=== PATIENT | female | born 1950 | race Caucasian/White ===

== ENCOUNTER 2023-04-11 21:08 | Inpatient (IN) | payer MEDICARE ==
[2023-04-11] MEDS ORDERED: SODIUM CHLORIDE 0.9% 1,000 ML IV STA (21:19)
--- NOTE | 2023-04-11 21:25 | ED ---
Chest Pain HPI - General Chief Complaint: Chest Pain Stated Complaint: STEMI Time Seen by Provider: 04/11/23 21:19 Source: patient, EMS, RN notes reviewed, old records reviewed Mode of arrival: EMS Limitations: no limitations - History of Present Illness Initial Comments: This is a 73-year-old female to the ER for evaluation of chest pain. Patient is excepted in transfer from outside hospital for elevated troponin and chest pain MD Complaint: chest pain -: hour(s) (12) Onset: during rest Pain Location: substernal, left chest Pain Radiation: LUE Severity: moderate Quality: tightness, heaviness Consistency: constant Improves With: nothing Worsens With: nothing Treatments Prior to Arrival: none, aspirin - Related Data Allergies Allergy/AdvReac Type Severity Reaction Status Date / Time morphine AdvReac Rash/Hives Verified 04/11/23 21:24 rifaximin [From Xifaxan] AdvReac Rash/Hives Verified 04/11/23 21:24 Sulfa (Sulfonamide AdvReac Rash/Hives Verified 04/11/23 21:24 Antibiotics) tetracycline AdvReac Rash/Hives Verified 04/11/23 21:24 Review of Systems ROS Statement: Those systems with pertinent positive or pertinent negative responses have been documented in the HPI. ROS Other: All systems not noted in ROS Statement are negative. EKG Findings - EKG Comments: EKG Findings:: EKG is sinus 72 CA 180 QRS 91 QTc 464 - EKG Results: EKG: interpreted by JENNIFER Past Medical History Past Medical History: Cancer, Diabetes Mellitus Additional Past Medical History / Comment(s): Lung CA, Skin CA History of Any Multi-Drug Resistant Organisms: None Reported Past Surgical History: Heart Catheterization With Stent Additional Past Surgical History / Comment(s): Lung CA removal Past Psychological History: No Psychological Hx Reported Smoking Status: Vaper Past Alcohol Use History: None Reported Past Drug Use History: None Reported General Exam Limitations: no limitations General appearance: alert, in no apparent distress Head exam: Present: atraumatic, normocephalic, normal inspection Eye exam: Present: normal appearance, PERRL, EOMI. Absent: scleral icterus, conjunctival injection, periorbital swelling ENT exam: Present: normal exam, mucous membranes moist Neck exam: Present: normal inspection. Absent: tenderness, meningismus, lymphadenopathy Respiratory exam: Present: normal lung sounds bilaterally. Absent: respiratory distress, wheezes, rales, rhonchi, stridor Cardiovascular Exam: Present: regular rate, normal rhythm, normal heart sounds. Absent: systolic murmur, diastolic murmur, rubs, gallop, clicks GI/Abdominal exam: Present: soft, normal bowel sounds. Absent: distended, tenderness, guarding, rebound, rigid Extremities exam: Present: normal inspection, full ROM, normal capillary refill. Absent: tenderness, pedal edema, joint swelling, calf tenderness Back exam: Present: normal inspection Neurological exam: Present: alert, oriented X3, CN II-XII intact Psychiatric exam: Present: normal affect, normal mood Skin exam: Present: warm, dry, intact, normal color. 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 sent in by a medical professional or institution (, PA, PARALEGAL ASSISTANT, urgent care, hospital, or [facility]...) When possible be specific @ -no Did you speak to anyone other than the patient for history (EMS, parent, family, police, friend...)? What history was obtained from this source @ -no Did you review nursing and triage notes (agree or disagree)? Why? @ -agree Are old charts reviewed (outside hosp., previous admission, EMS record, old EKG, old radiological studies, urgent care reports/EKG's, [facility] records)? Rep ort findings @ -yes Differential Diagnosis (chest pain, altered mental status, abdominal pain women, abdominal pain men, vaginal bleeding, weakness, fever, dyspnea, syncope, headache, dizziness, GI bleed, back pain, seizure, CVA, palpatations, mental health, musculoskeletal)? @ -prior EKG interpreted by me (3pts min.). @ -yes X-rays interpreted by me (1pt min.). @ -yes negative for acute disease CT interpreted by me (1pt min.). @ -no U/S interpreted by me (1pt. min.). @ -no What testing was considered but not performed or refused? (CT, X-rays, U/S, labs)? Why? @ -none What meds were considered but not given or refused? Why? @ -none Did you discuss the management of the patient with other professionals (professionals i.e. , PA, PARALEGAL ASSISTANT, lab, RT, psych nurse, social worker assistant, car examiner, t eacher, assurance officer, showcase maker)? Give summary @ -no Was smoking cessation discussed for >3mins.? @ -no Was critical care preformed (if so, how long)? @ -no Were there social determinants of health that impacted care today? How? (Homelessness, low income, unemployed, alcoholism, drug addiction, transportation, low edu. Level, literacy, decrease access to med. care, nursing home, rehab)? @ -none Was there de-escalation of care discussed even if they declined (Discuss DNR or withdrawal of care, Hospice)? DNR status @ -no What co-morbidities impacted this encounter? (DM, HTN, Smoking, COPD, CAD, Cancer, CVA, ARF, Chemo, Hep., AIDS, mental health diagnosis, sleep apnea, morbid obesity)? @ -none Was patient admitted / discharged? Hospital course, mention meds given and route, prescriptions, significant lab abnormalities, going to OR and other pertinent info. @ - Undiagnosed new problem with uncertain prognosis? @ -no Drug Therapy requiring intensive monitoring for toxicity (Heparin, Nitro, Insulin, Cardizem)? @ -no Were any procedures done? @ -no Diagnosis/symptom? @ - Acute, or Chronic, or Acute on Chronic? @ -Acute Uncomplicated (without systemic symptoms) or Complicated (systemic symptoms)? @ -Complicated Side effects of treatment? @ -no Exacerbation, Progression, or Severe Exacerbation? @ -exacerbation Poses a threat to life or bodily function? How? (Chest pain, [place], [place], pneumonia, PE, COPD, DKA, ARF, appy, cholecystitis, CVA, Diverticulitis, Homicidal, Suicidal, threat to staff... and all critical care pts) @ -yes Reevaluation #5: 04/11/23 22:04 Differential Chest Pain: Stable Angina, Unstable Angina, STEMI, NSTEMI Aortic Dissection, Pneumothorax, Musculoskeletal, Esophageal Spasm GERD, Cholecystitis, Pancreatitis, Zoster, this is not meant to be an all-inclusive list. - Consultations Consultation #1: Spoke with Dr. Pedersen will see the patient in the morning Consultation #2: Poke with [facility] physicians who agreed to admit this patient Chest Pain MDM - MDM 73 female will be admitted for non-ST elevated [place], elevated troponin with the setting of chest pain Critical Care Time Critical Care Time: Yes Total Critical Care Time: 31 Disposition Clinical Impression: Chest pain, Acute non-ST elevation myocardial infarction (NSTEMI) Disposition: ADMITTED IP TO THIS HOSP Condition: Serious Is patient prescribed a controlled substance at d/c from ED?: No Time of Disposition: 21:50
[2023-04-11] MEDS ORDERED: ASPIRIN 81 MG PO STA (21:35)
[2023-04-11] MEDS ORDERED: NITROGLYCERIN SL TABS 0.4 MG TAB SUBLINGUAL PRN (21:35)
[2023-04-11 21:57] LABS: Basophils % (A) 0 %; Eosinophils # (A) 0.1 k/uL (0-0.7); Eosinophils % (A) 1 %; HCT 43.5 % (34.0-46.0); HGB 14.9 gm/dL (11.4-16.0); Lymphocytes # (A) 3.1 k/uL (1.0-4.8); Lymphocytes % (A) 29 %; MCH 30.4 pg (25.0-35.0); MCHC 34.2 g/dL (31.0-37.0); MCV 88.9 fL (80.0-100.0); Mean Platelet Volume 8.4; Monocytes # (A) 0.5 k/uL (0-1.0); Monocytes % (A) 5 %; Neutrophils # (A) 6.8 k/uL (1.3-7.7); Neutrophils % (A) 63 %; Platelet Count 211 k/uL (150-450); RDW 13.2 % (11.5-15.5); WBC 10.9 k/uL (3.8-10.6)
[2023-04-11] MEDS ORDERED: HEPARIN SODIUM 1,000 UN/ML (10ML VL) IV PRN (22:03)
[2023-04-11] MEDS ORDERED: NITROGLYCERIN OINT 1 INCH/GM PACKET TOPICAL STA (22:03)
[2023-04-11 22:06] LABS: Partial Thromboplastin Time 62.7 sec (22.0-30.0); Prothrombin Time 10.8 sec (10.0-12.5)
[2023-04-11] MEDS ORDERED: HYDROmorphone 0.5 MG/0.5 ML SYRINGE IVP STA (22:20)
[2023-04-11] MEDS: HEPARIN SOD,PORK IN 0.45% NACL 25,000 UNIT in 0.45% NACL 1 250ML.BAG IV SCH (22:31)
[2023-04-11] MEDS ORDERED: ALBUTEROL NEBULIZED 2.5 MG/3 ML INHALATION PRN (22:46)
[2023-04-11 22:51] LABS: ALT 23 U/L (4-34); AST 61 U/L (14-36); African American GFR (CKD) 67 (>60 ml/min/1.73 sqM); Albumin 4.3 g/dL (3.5-5.0); Alkaline Phosphatase 99 U/L (38-126); Anion Gap 7 mmol/L; Blood Urea Nitrogen 22 mg/dL (7-17); Calcium 8.8 mg/dL (8.4-10.2); Carbon Dioxide 27 mmol/L (22-30); Chloride 103 mmol/L (98-107); Glucose 270 mg/dL (74-99); Magnesium 2.2 mg/dL (1.6-2.3); Non-African American GFR(CKD) 58 (>60 ml/min/1.73 sqM); Phosphorus 4.1 mg/dL (2.5-4.5); Sodium 137 mmol/L (137-145); Total Protein 6.9 g/dL (6.3-8.2)
[2023-04-11 22:56] LABS: Potassium 5.1 mmol/L (3.5-5.1)
[2023-04-11 22:59] LABS: NT-Pro-B-Type Natriuretic Pept 6630 pg/mL
[2023-04-11 23:24] LABS: Basophils % (A) 1 %; Eosinophils # (A) 0.1 k/uL (0-0.7); Eosinophils % (A) 1 %; HCT 42.4 % (34.0-46.0); HGB 14.1 gm/dL (11.4-16.0); Lymphocytes # (A) 2.1 k/uL (1.0-4.8); Lymphocytes % (A) 25 %; MCH 29.9 pg (25.0-35.0); MCHC 33.3 g/dL (31.0-37.0); MCV 89.9 fL (80.0-100.0); Mean Platelet Volume 7.6; Monocytes # (A) 0.5 k/uL (0-1.0); Monocytes % (A) 6 %; Neutrophils # (A) 5.4 k/uL (1.3-7.7); Neutrophils % (A) 65 %; Platelet Count 195 k/uL (150-450); RBC 4.72 m/uL (3.80-5.40); RDW 13.1 % (11.5-15.5); WBC 8.3 k/uL (3.8-10.6)
[2023-04-11] MEDS: allopurinoL 100 MG TAB PO SCH (23:56)
[2023-04-11] MEDS: tiZANidine 4 MG TAB PO SCH (23:56)
[2023-04-11] MEDS: MAGNESIUM OXIDE 400 MG TAB PO SCH (23:56)
[2023-04-11] MEDS: ATORVASTATIN 20 MG TAB PO SCH (23:56)
[2023-04-11] MEDS: GABAPENTIN 300 MG CAP PO SCH (23:56)
[2023-04-11] MEDS: GLIMEPIRIDE 1 MG TAB PO SCH (23:56)
[2023-04-12 00:02] LABS: Prothrombin Time 10.7 sec (10.0-12.5)
[2023-04-12] MEDS: HYDROmorphone 0.5 MG/0.5 ML SYRINGE IVP PRN ×2 (02:13→08:21)
[2023-04-12] MEDS: NITROGLYCERIN OINT 1 INCH/GM PACKET TOPICAL SCH ×5 (06:16→23:22)
[2023-04-12 06:49] LABS: Basophils % (A) 1 %; Eosinophils # (A) 0.1 k/uL (0-0.7); Eosinophils % (A) 1 %; HGB 13.5 gm/dL (11.4-16.0); Lymphocytes # (A) 2.4 k/uL (1.0-4.8); Lymphocytes % (A) 31 %; MCH 30.5 pg (25.0-35.0); MCHC 33.7 g/dL (31.0-37.0); MCV 90.5 fL (80.0-100.0); Mean Platelet Volume 7.7; Monocytes # (A) 0.5 k/uL (0-1.0); Monocytes % (A) 7 %; Neutrophils # (A) 4.5 k/uL (1.3-7.7); Neutrophils % (A) 58 %; Platelet Count 203 k/uL (150-450); RBC 4.41 m/uL (3.80-5.40); RDW 13.2 % (11.5-15.5); WBC 7.7 k/uL (3.8-10.6)
[2023-04-12 07:12] LABS: Prothrombin Time 10.9 sec (10.0-12.5)
[2023-04-12] MEDS: BUDESONIDE 0.5 MG/2 ML NEBU INHALATION SCH ×2 (08:20→20:42)
[2023-04-12] MEDS: GABAPENTIN 300 MG CAP PO SCH ×2 (08:24→21:00)
[2023-04-12] MEDS: METOPROLOL SUCCINATE (ER) 100 MG TAB.ER.24H PO SCH ×2 (08:24→08:25)
[2023-04-12] MEDS: MAGNESIUM OXIDE 400 MG TAB PO SCH (08:24)
[2023-04-12] MEDS: tiZANidine 4 MG TAB PO SCH ×3 (08:25→21:00)
[2023-04-12] MEDS: GLIMEPIRIDE 1 MG TAB PO SCH ×2 (08:30→23:22)
[2023-04-12] MEDS ORDERED: ASPIRIN 325 MG TAB PO SCH (09:00)
[2023-04-12] MEDS ORDERED: METOPROLOL TARTRATE 25 MG TAB PO SCH (09:00)
[2023-04-12 09:19] LABS: Chol/HDL Ratio 3.98 Ratio; LDL Cholesterol,Calculated 49.7 mg/dL (0.0-131.0)
[2023-04-12] MEDS ORDERED: ATORVASTATIN 80 MG TAB PO STA (09:44)
[2023-04-12] MEDS ORDERED: ALPRAZolam 0.25 MG TAB PO PRN (09:44)
[2023-04-12] MEDS ORDERED: NITROGLYCERIN SL TABS 0.4 MG TAB SUBLINGUAL PRN (09:44)
[2023-04-12] MEDS ORDERED: ASPIRIN 325 MG TAB PO STA (09:44)
[2023-04-12] MEDS: SODIUM CHLORIDE 0.9% 1,000 ML IV SCH ×2 (10:09→23:22)
[2023-04-12] MEDS ORDERED: CLOPIDOGREL 75 MG TAB PO SCH (11:45)
--- NOTE | 2023-04-12 13:38 | P.CRDCN ---
History of Present Illness Consult date: 04/12/23 Reason for Consult (text): NSTEMI History of present illness: History of present illness: This is a 73-year-old female patient with past medical history of diabetes mellitus type 2, hypertension, hyperlipidemia, lung cancer, vaping. We have been asked to evaluate the patient for non-ST elevated myocardial infarction. 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 She presented to the emergency center due to chest pain has been going on for couple weeks and including under the armpit area. Patient states the pain was getting worse, on and off over this time. Patient has been started on a heparin drip and is seen today in the emergency center waiting for bed on the cardiac stepdown unit. Patient denies having any history of smoking, no alcohol use. No family history of coronary artery disease. EKG sinus rhythm CBC is unremarkable. INR 1. Electrolytes normal. BUN 22 creatinine 0.96. Blood sugar 270. AST 61 otherwise liver function test are normal. Magnesium 2.2, phosphorus 4.1. Troponins 1.88, 2.05, 2.75. Triglycerides 298, cholesterol 146, LDL 49, HDL 36. Home cardiac medications: Atorvastatin 20 mg at bedtime, Plavix 75 mg Saturday, Lasix 40 mg twice daily, magnesium oxide 500 mg daily, Toprol- XL 100 mg daily. Review Of Systems: At the time of my exam: CONSTITUTIONAL: Denies fever or chills. HEENT: Denies blurred vision, vision changes, or eye pain. Denies hemoptysis CARDIOVASCULAR: Denies chest pain. Denies orthopnea. Denies PND. Denies palpitations RESPIRATORY: Denies shortness of breath. GASTROINTESTINAL: Denies abdominal pain. Denies nausea or vomiting. HEMATOLOGIC: Denies bleeding disorders. GENITOURINARY: Denies any blood in urine. SKIN: Denies pruitis. Denies rash. Physical examination: Gen: This is a 73-year-old female appears to be in no acute distress VS: reviewed HEENT: Head is atraumatic, normocephalic. Pupils equal, round. Sclerae is anicteric. NECK: Supple. No JVD. LUNGS: Clear to auscultation. No wheezes or rhonchi. No intercostal retractions. HEART: Regular rate and rhythm. No murmur. ABDOMEN: Soft No tenderness. EXTREMITIES: No pedal edema. No calf tenderness. NEUROLOGICAL: Patient is awake, alert and oriented x3. Assessment: Non-ST elevated myocardial infarction Diabetes mellitus type 2 Hypertension Hyperlipidemia History of lung cancer History of vaping Plan: Continue patient on home cardiac medications except for Plavix Continue heparin drip Schedule patient for cardiac catheterization today with Dr. Murrieta. Obtain 2-D echocardiogram and Doppler study to assess cardiac structure and function Further recommendations to follow based upon clinical course Thank you kindly for this consultation. Nurse practitioner note has been reviewed, I agree with documented findings and plan of care. Patient was seen and examined. Past Medical History Past Medical History: Cancer, Diabetes Mellitus Additional Past Medical History / Comment(s): Lung CA, Skin CA History of Any Multi-Drug Resistant Organisms: None Reported Past Surgical History: Heart Catheterization With Stent Additional Past Surgical History / Comment(s): Lung CA removal Past Psychological History: No Psychological Hx Reported Smoking Status: Vaper Past Alcohol Use History: None Reported Past Drug Use History: None Reported Medications and Allergies Home Medications Medication Instructions Recorded Confirmed Type ALPRAZolam [Xanax] 1 mg PO BID 04/11/23 04/11/23 History Albuterol Inhaler [Ventolin Hfa 2 puff INHALATION RT-Q4H PRN 04/11/23 04/11/23 History Inhaler] Atorvastatin [Lipitor] 20 mg PO HS 04/11/23 04/11/23 History Budesonide 0.5 mg INHALATION RT-BID 04/11/23 04/11/23 History Cholecalciferol (Vitamin D3) 50 mcg PO DAILY 04/11/23 04/11/23 History [Vitamin D3 (50 Mcg = 2000 Iu)] Clopidogrel [Plavix] 75 mg PO MOWEFR 04/11/23 04/11/23 History Cyanocobalamin [Vitamin B-12] 500 mcg PO DAILY 04/11/23 04/11/23 History Furosemide [Lasix] 40 mg PO BID 04/11/23 04/11/23 History Gabapentin 600 mg PO BID 04/11/23 04/11/23 History Glimepiride [Amaryl] 2 mg PO BID 04/11/23 04/11/23 History HYDROcodone/APAP 7.5-325MG [[place] 1 tab PO TID PRN 04/11/23 04/11/23 History 7.5-325] Ipratropium-Albuterol Nebulize 3 ml INHALATION RT-QID PRN 04/11/23 04/11/23 History [Duoneb 0.5 mg-3 mg/3 ml Soln] Magnesium Oxide [Magnesium] 500 mg PO DAILY 04/11/23 04/11/23 History Metoprolol Succinate (ER) [Toprol 100 mg PO DAILY 04/11/23 04/11/23 History Xl] allopurinoL [Zyloprim] 100 mg PO HS 04/11/23 04/11/23 History calcitrioL [Rocaltrol] 0.25 mcg PO TUTH 04/11/23 04/11/23 History tiZANidine [Zanaflex] 4 mg PO TID 04/11/23 04/11/23 History Allergies Allergy/AdvReac Type Severity Reaction Status Date / Time morphine AdvReac Rash/Hives Verified 04/11/23 22:20 rifaximin [From Xifaxan] AdvReac Rash/Hives Verified 04/11/23 22:20 Sulfa (Sulfonamide AdvReac Rash/Hives Verified 04/11/23 22:20 Antibiotics) tetracycline AdvReac Rash/Hives Verified 04/11/23 22:20 Physical Exam Vitals: Vital Signs Temp Pulse Pulse Resp BP Pulse Ox 04/12/23 08:20 65 16 95 04/12/23 08:00 55 L 18 103/63 96 04/12/23 06:00 61 16 100/58 98 04/12/23 04:00 58 L 16 80/59 97 04/12/23 02:00 65 18 103/68 95 04/11/23 23:54 64 18 118/67 93 L 04/11/23 22:30 63 18 127/69 96 04/11/23 21:30 67 18 136/78 93 L 04/11/23 21:26 69 04/11/23 21:15 97.1 F L 78 18 156/86 92 L Intake and Output 04/11/23 04/12/23 04/12/23 22:59 06:59 14:59 Other: Weight 75.75 kg Results 04/12/23 05:28 04/11/23 21:24 Cardiac Enzymes 04/11/23 04/11/23 04/11/23 Range/Units 21:24 21:24 22:46 AST 61 H (14-36) U/L Troponin I 1.880 H* 2.050 H* (0.000-0.034) ng/mL 04/12/23 Range/Units 01:07 AST (14-36) U/L Troponin I 2.750 H* (0.000-0.034) ng/mL Coagulation 04/11/23 04/11/23 04/12/23 Range/Units 21:24 22:46 05:28 PT 10.8 10.7 10.9 (10.0-12.5) sec APTT 62.7 H 35.0 H (22.0-30.0) sec 04/12/23 Range/Units 05:28 PT (10.0-12.5) sec APTT 54.9 H (22.0-30.0) sec Lipids 04/12/23 Range/Units 01:07 Triglycerides 298.00 H (0.00-149.00) mg/dL Cholesterol 146.00 (0.00-200.00) mg/dL HDL Cholesterol 36.70 L (40.00-60.00) mg/dL Cholesterol/HDL Ratio 3.98 Ratio CBC 04/11/23 04/11/23 04/12/23 Range/Units 21:22 22:46 05:28 WBC 10.9 H 8.3 7.7 (3.8-10.6) k/uL RBC 4.90 4.72 4.41 (3.80-5.40) m/uL Hgb 14.9 14.1 13.5 (11.4-16.0) gm/dL Hct 43.5 42.4 40.0 (34.0-46.0) % Plt Count 211 195 203 (150-450) k/uL Comprehensive Metabolic Panel 04/11/23 Range/Units 21:24 Sodium 137 (137-145) mmol/L Potassium 5.1 (3.5-5.1) mmol/L Chloride 103 (98-107) mmol/L Carbon Dioxide 27 (22-30) mmol/L BUN 22 H (7-17) mg/dL Creatinine 0.96 (0.52-1.04) mg/dL Glucose 270 H (74-99) mg/dL Calcium 8.8 (8.4-10.2) mg/dL AST 61 H (14-36) U/L ALT 23 (4-34) U/L Alkaline Phosphatase 99 (38-126) U/L Total Protein 6.9 (6.3-8.2) g/dL Albumin 4.3 (3.5-5.0) g/dL Current Medications Generic Name Dose Route Start Last Admin Trade Name Freq PRN Reason Stop Dose Admin Albuterol Sulfate 2.5 mg 04/11/23 22:46 Albuterol Nebulized 2.5 Mg/3 Ml INHALATION RT-Q4H PRN Shortness Of Breath Albuterol/Ipratropium 3 ml 04/11/23 22:46 Ipratropium-Albuterol 3 Ml Neb INHALATION RT-QID PRN Shortness Of Breath Allopurinol 100 mg 04/11/23 23:00 04/11/23 23:56 Allopurinol 100 Mg Tab PO 100 mg HS NORMA Administration Aspirin 325 mg 04/12/23 09:00 04/12/23 08:24 Aspirin 325 Mg Tab PO 325 mg DAILY NORMA Administration Atorvastatin Calcium 20 mg 04/11/23 23:00 04/11/23 23:56 Atorvastatin 20 Mg Tab PO 20 mg HS NORMA Administration Budesonide 0.5 mg 04/12/23 08:00 04/12/23 08:20 Budesonide 0.5 Mg/2 Ml Nebu INHALATION 0.5 mg RT-BID NORMA Administration Calcitriol 0.25 mcg 04/11/23 23:00 04/11/23 23:10 Calcitriol 0.25 Mcg Cap PO Not Given TuTh@0900 NORMA Gabapentin 600 mg 04/11/23 23:00 04/12/23 08:24 Gabapentin 300 Mg Cap PO 600 mg BID NORMA Administration Glimepiride 2 mg 04/11/23 23:00 04/12/23 08:30 Glimepiride 1 Mg Tab PO 2 mg BID NORMA Administration Heparin Sodium (Porcine) 0 unit 04/11/23 22:03 Heparin Sodium 1,000 Un/Ml (10ml Vl) IV PER PROTOCOL PRN Low PTT Protocol Hydromorphone HCl 0.5 mg 04/11/23 22:20 04/12/23 08:21 Hydromorphone 0.5 Mg/0.5 Ml Syringe IVP 0.5 mg Q4HR PRN Administration Pain Heparin Sodium/Sodium Chloride 250 mls @ 9.09 mls/hr 04/11/23 22:15 04/11/23 22:31 25,000 unit/ Sodium Chloride IV 12 units/kg/hr .Q24H NORMA 9.09 mls/hr Administration Protocol 12 UNITS/KG/HR Magnesium Oxide 400 mg 04/11/23 23:00 04/12/23 08:24 Magnesium Oxide 400 Mg Tab PO 400 mg DAILY [facility] Administration Metoprolol Succinate 100 mg 04/12/23 09:00 04/12/23 08:25 Metoprolol Succinate (Er) 100 Mg Tab.Er.24h PO Not Given DAILY [facility] Nitroglycerin 0.4 mg 04/11/23 21:35 Nitroglycerin Sl Tabs 0.4 Mg Tab SUBLINGUAL Q5M PRN Chest Pain Nitroglycerin 1 inch 04/12/23 00:00 04/12/23 06:16 Nitroglycerin Oint 1 Inch/Gm Packet TOPICAL Not Given Q6HR [facility] Tizanidine HCl 4 mg 04/11/23 23:00 04/12/23 08:25 Tizanidine 4 Mg Tab PO 4 mg TID [facility] Administration Intake and Output 04/11/23 04/12/23 04/12/23 22:59 06:59 14:59 Other: Weight 75.75 kg 04/12/23 05:28 04/11/23 21:24
[2023-04-12] MEDS ORDERED: HEPARIN SODIUM 1,000 UN/ML (10ML VL) ONE (16:03)
[2023-04-12] MEDS ORDERED: VERAPAMIL 2.5 MG/ML 2 ML AMP ONE (16:03)
[2023-04-12] MEDS ORDERED: fentaNYL (PF) 50 MCG/ML 2 ML AMP ONE (16:04)
[2023-04-12] MEDS ORDERED: IV FLUID CONTINUATION 1,000 ML IV ONE (16:06)
[2023-04-12] MEDS ORDERED: MIDAZOLAM 2 MG/2 ML VIAL IVP ONE (16:25)
[2023-04-12] MEDS ORDERED: fentaNYL (PF) 50 MCG/ML 2 ML AMP IVP ONE (16:25)
[2023-04-12] MEDS ORDERED: LIDOCAINE 1% INJ 10MG/ML (20 ML MDV) SQ ONE (16:27)
[2023-04-12] MEDS ORDERED: VERAPAMIL SYRINGE (5 MG/10 ML) INTRAARTER ONE (16:28)
[2023-04-12] MEDS: HEPARIN SODIUM 1,000 UN/ML (10ML VL) IV ONE ×4 (16:31→17:09)
[2023-04-12] MEDS ORDERED: CLOPIDOGREL 75 MG TAB ONE ×2 (16:41→16:42)
[2023-04-12] MEDS ORDERED: CLOPIDOGREL 75 MG TAB PO ONE (16:43)
[2023-04-12] MEDS: NITROGLYCERIN 1000MCG/10ML SYRINGE INTRACORON ONE ×2 (16:57→17:03)
[2023-04-12] MEDS ORDERED: IOPAMIDOL-370 100ML BTL INJ ONE ×2 (17:08→17:12)
[2023-04-12] MEDS ORDERED: ONDANSETRON 4 MG/2 ML VIAL ONE (17:12)
[2023-04-12] MEDS ORDERED: ATROPINE SULFATE 0.1 MG/ML 10ML SYRINGE IV PRN (17:23)
[2023-04-12] MEDS ORDERED: ZOLPIDEM 5 MG TAB PO PRN (17:23)
[2023-04-12] MEDS ORDERED: RX INFO: IV CONTRAST WAS GIVEN 1 EACH MISC MISCELLANE PRN (17:23)
[2023-04-12] MEDS ORDERED: MAG HYDROX/AL HYDROX/SIMETH 30 ML CUP PO PRN (17:23)
--- NOTE | 2023-04-12 17:23 | P.PRCINT ---
Percutaneous Coronary Int. - Percutaneous Coronary Intervention Percutaneous Coronary Intervention: PROCEDURES PERFORMED: Left heart catheterization, bilateral coronary angiography, ultrasound guided arterial access, PCI mid LAD with 3,0 x 12mm Xience THAO, post dilated with a 3.25mm NC balloon, IVUS LAD INDICATION: Non-STEMI CONSENT:I have discussed the risks, benefits and alternative therapies for the above-mentioned procedure and for both sedation/analgesia as well as necessary blood product administration, if indicated, as they pertain to this patient. The patient has indicated understanding and acceptance of the risks and procedures discussed. PROCEDURE: After the risks, benefits and alternatives of the above mentioned procedure explained in detail with the patient, informed consent was obtained. Patient was taken to the catheterization lab and prepped and draped in usual fashion. Ultrasound guidance was used to assess for arterial access. 1% lidocaine was used to anesthetize the right radial artery. A 6-[place]aur[place] sheath was placed in the right radial artery using modified Seldinger technique and ultrasound guidance. Left coronary angiography was performed with a 5-[place]aur[place] JL 3.5 catheter and right coronary angiography was performed with a 5-[place]auruan FR5 catheter in various views. A 5-[place]aur[place] FR5 catheter was inserted into the left ventricle and pressure measurements were obtained. The decision was made to perform PCI of LAD. Unclear if stuttering chest pain and recent occlusion or more remote occlusion however had started having some atypical chest pain within the last 30 minutes. There were Q waves in anterior septal leads however given ongoing chest pain felt possibly viable. A 6-[place]aur[place] CLS 3.5 guide was used to engage the left main. Heparin was given. A 0.014 BMW wire was advanced to the distal LAD. Predilation was performed with a 2.5 x 12 mm balloon. Next a risk for ultrasound was performed which showed long stent from the proximal to distal LAD which was under size with approximately 2.25-2.5 mm diameter. Repeat balloon angioplasty was performed with a 2.75 x 12 mm noncompliant balloon. Given small diameter to begin with decision was made not to perform extensive stenting however there was still a more focal mid LAD stenosis which appeared main site of stenosis and therefore decision was made to stent this area. A 3.0 x 12 mm Xience THAO was placed in the mid LAD. The stent was postdilated with a 3.25 noncompliant balloon. Final cholangiograms were performed. Repeat intravascular ultrasound showed well expanded stent and mild diffuse disease. The right radial sheath was removed and a TR band was placed with hemostasis achieved. The patient tolerated the procedure well. Patient was transported back to the post catheterization holding area in stable condition. Conscious Sedation: Patient was monitored under the direct supervision of myself for conscious sedation using Versed and fentanyl for a total duration of 43 minutes HEMODYNAMICS: Aortic: 107/58 LV: 122/20, LVEDP 31 SELECTIVE CORONARY ARTERIOGRAPHY: LEFT MAIN: The left main is a large caliber vessel which bifurcates into the LAD and circumflex. There is no significant stenosis. LEFT ANTERIOR DESCENDING CORONARY ARTERY: LAD is a large caliber vessel which wraps around to the apex. There is diffuse proximal to distal LAD stent which has a mid LAD 100% stenosis. LEFT CIRCUMFLEX CORONARY ARTERY: Left circumflex is a moderate caliber vessel with mild 30% stenosis RIGHT CORONARY ARTERY: The right coronary artery is a large caliber vessel which gives off a PDA and PLV branch and is the dominant vessel. There is a proximal to mid RCA stent with 30-40% stenosis in the proximal and mid to distal RCA. FINAL IMPRESSION: 1. CAD as described above including 100% mid LAD in-stent stenosis, 30% circumflex stenosis, 30-40% RCA stenosis 2. S/p PCI mid LAD with 3,0 x 12mm Xience THAO, post dilated with a 3.25mm NC balloon 3. Elevated left sided filling pressures PLAN: 1. Aggressive risk factor modification per most recent ACC/AHA guidelines. 2. Continue dual antiplatelets with aspirin and Plavix for 12 months
--- NOTE | 2023-04-12 17:44 | CA ---
Transthoracic Echo Report Name: Georgia Mehta Age: 73 Gender: F : 1950 Exam Date: 04/12/2023 08:55 Exam Location: [facility] Ht (in): 63 Wt (lb): 167 Ordering Physician: Octavio Tidwell DO Attending/Referring Phys: [id number], Diann Ed Tech Paxtno Martin RD Procedure CPT: Indications: elevTrop Cardiac Hx: Technical Quality: Fair Contrast 1: Total Dose (mL): Contrast 2: Total Dose (mL): MEASUREMENTS (Male / Female) Normal Values 2D ECHO LV Diastolic Diameter PLAX 3.8 cm 4.2 - 5.9 / 3.9 - 5.3 cm LV Systolic Diameter PLAX 2.5 cm IVS Diastolic Thickness 1.1 cm 0.6 - 1.0 / 0.6 - 0.9 cm LVPW Diastolic Thickness 1.1 cm 0.6 - 1.0 / 0.6 - 0.9 cm LV Relative Wall Thickness 0.6 RV Internal Dim ED PLAX 2.3 cm LVOT Diameter 2.0 cm Aortic Root Diameter 2.2 cm LA Systolic Diameter LX 2.8 cm 3.0 - 4.0 / 2.7 - 3.8 cm LV Diastolic Volume MOD BP 48.8 cm??? 67 - 155 / 56 - 104 cm??? LV Systolic Volume MOD BP 22.4 cm??? 22 - 58 / 19 - 49 cm??? LV Ejection Fraction MOD BP 54.1 % >= 55 % LV Cardiac Index MOD BP 851.6 cm???/min???m??? LV Diastolic Volume MOD 4C 53.2 cm??? LV Systolic Volume MOD 4C 24.9 cm??? LV Ejection Fraction MOD 4C 53.3 % LV Cardiac Index MOD 4C 915.5 cm???/min???m??? LV Diastolic Length 4C 6.5 cm LV Systolic Length 4C 5.9 cm LV Diastolic Volume MOD 2C 44.3 cm??? LV Systolic Volume MOD 2C 19.8 cm??? LV Ejection Fraction MOD 2C 55.3 % LV Cardiac Index MOD 2C 790.3 cm???/min???m??? LV Diastolic Length 2C 6.3 cm LV Systolic Length 2C 5.7 cm LA Volume 25.4 cm??? 18 - 58 / 22 - 52 cm??? LA Volume Index 13.7 cm???/m??? 16 - 28 cm???/m??? Ascending Aorta Diameter 2.4 cm DOPPLER AV Peak Velocity 131.7 cm/s AV Peak Gradient 6.9 mmHg LVOT Peak Velocity 68.9 cm/s LVOT Peak Gradient 1.9 mmHg LVOT Velocity Time Integral 14.3 cm LVOT Stroke Volume 44.2 cm??? LVOT Stroke Volume Index 24.7 ml/m??? LVOT Cardiac Index 1425.6 cm???/min???m??? AV Area Cont Eq pk 1.6 cm??? MV Peak Velocity 89.9 cm/s MV Peak Gradient 3.2 mmHg MV Mean Velocity 37.6 cm/s MV Mean Gradient 0.7 mmHg MV Velocity Time Integral 32.0 cm Mitral E Point Velocity 59.4 cm/s Mitral A Point Velocity 79.4 cm/s Mitral E to A Ratio 0.7 MV Deceleration Time 228.8 ms PV Peak Velocity 80.9 cm/s PV Peak Gradient 2.6 mmHg FINDINGS Left Ventricle Normal LV size and wall thickness. Apical akinesis. Mid to distal inferior and inferoseptal wall hypokinesia Left ventricular ejection fraction is estimated at 50-55 %. Right Ventricle Normal right ventricular size. Right Atrium Normal right atrial size. Left Atrium Normal left atrial size. Mitral Valve Structurally normal mitral valve. No mitral stenosis. No mitral regurgitation. Aortic Valve Trileaflet aortic valve. Mild AV calcification/sclerosis.no aortic stenosis. No aortic regurgitation. Tricuspid Valve Structurally normal tricuspid valve. Trace TR. Pulmonic Valve Pulmonic valve not well visualized. Trace pulmonic regurgitation. Pericardium Normal pericardium. Aorta Normal size aortic root and proximal ascending aorta. CONCLUSIONS Mid to distal inferior and inferoseptal wall hypokinesia. Apical akinesis. Left ventricular ejection fraction is estimated at 50-55 %. Normal RA, RV and LV size No significant valvular dysfunction No pericardial effusion Previewed by: Dr Jose Maria Castano (Electronically Signed) Final Date: 12 April 2023 17:43
[2023-04-12] MEDS: FUROSEMIDE 40 MG TAB PO SCH (18:53)
[2023-04-12] MEDS: SODIUM CHLORIDE 0.9% 1,000 ML in EMPTY BAG 1 BAG IV SCH (18:53)
[2023-04-12 20:06] LABS: Glucose,Whole Blood 202 mg/dL (70-110)
[2023-04-12] MEDS: IPRATROPIUM-ALBUTEROL 3 ML NEB INHALATION PRN (20:42)
[2023-04-12] MEDS: HEPARIN SOD,PORK IN 0.45% NACL 25,000 UNIT in 0.45% NACL 1 250ML.BAG IV SCH (20:58)
[2023-04-12] MEDS: ALPRAZolam 0.5 MG TAB PO PRN (21:00)
[2023-04-12] MEDS: ATORVASTATIN 20 MG TAB PO SCH (21:00)
[2023-04-12] MEDS: allopurinoL 100 MG TAB PO SCH (21:00)
[2023-04-13] MEDS: NITROGLYCERIN OINT 1 INCH/GM PACKET TOPICAL SCH (04:49)
[2023-04-13] MEDS: SODIUM CHLORIDE 0.9% 1,000 ML in EMPTY BAG 1 BAG IV SCH (04:50)
[2023-04-13 05:59] LABS: Glucose,Whole Blood 187 mg/dL (70-110)
[2023-04-13] MEDS ORDERED: HEPARIN SODIUM,PORCINE 10,000 UNIT in SODIUM CHLORIDE 0.9% 1,000 ML IRRIGATION PRN (07:00)
[2023-04-13] MEDS ORDERED: HEPARIN SODIUM,PORCINE (1 ML) 2,500 UNIT in SODIUM CHLORIDE 0.9% 250 ML IRRIGATION PRN (07:00)
[2023-04-13] MEDS: BUDESONIDE 0.5 MG/2 ML NEBU INHALATION SCH ×2 (08:04→21:06)
[2023-04-13] MEDS: IPRATROPIUM-ALBUTEROL 3 ML NEB INHALATION PRN (08:04)
[2023-04-13] MEDS: CYANOCOBALAMIN 500 MCG TAB PO SCH (08:19)
[2023-04-13] MEDS: GLIMEPIRIDE 1 MG TAB PO SCH ×2 (08:19→20:50)
[2023-04-13] MEDS: tiZANidine 4 MG TAB PO SCH ×3 (08:20→20:50)
[2023-04-13] MEDS: CHOLECALCIFEROL 25 MCG (1000 IU) TABLET PO SCH (08:20)
[2023-04-13] MEDS: FUROSEMIDE 40 MG TAB PO SCH ×2 (08:20→17:12)
[2023-04-13] MEDS: MAGNESIUM OXIDE 400 MG TAB PO SCH (08:20)
[2023-04-13] MEDS: GABAPENTIN 300 MG CAP PO SCH ×2 (08:20→20:51)
[2023-04-13] MEDS: ASPIRIN 81 MG PO SCH (08:20)
[2023-04-13] MEDS: METOPROLOL SUCCINATE (ER) 100 MG TAB.ER.24H PO SCH (08:20)
[2023-04-13 09:28] LABS: African American GFR (CKD) 60 (>60 ml/min/1.73 sqM); Non-African American GFR(CKD) 52 (>60 ml/min/1.73 sqM)
--- NOTE | 2023-04-13 10:19 | P.PN ---
Subjective Progress Note Date: 04/13/23 Reason for Consult (text): NSTEMI History of present illness: History of present illness: This is a 73-year-old female patient with past medical history of diabetes mellitus type 2, hypertension, hyperlipidemia, lung cancer, vaping. We have been asked to evaluate the patient for non-ST elevated myocardial infarction. Patient states that she has not been seen by neighborhood aide and has had no cardiac workup in the past. She presented to the emergency center due to chest pain has been going on for couple weeks and including under the armpit area. Patient states the pain was getting worse, on and off over this time. Patient has been started on a heparin drip and is seen today in the emergency center waiting for bed on the cardiac stepdown unit. Patient denies having any history of smoking, no alcohol use. No family history of coronary artery disease. EKG sinus rhythm CBC is unremarkable. INR 1. Electrolytes normal. BUN 22 creatinine 0.96. Blood sugar 270. AST 61 otherwise liver function test are normal. Magnesium 2.2, phosphorus 4.1. Troponins 1.88, 2.05, 2.75. Triglycerides 298, cholesterol 146, LDL 49, HDL 36. Home cardiac medications: Atorvastatin 20 mg at bedtime, Plavix 75 mg Saturday, Lasix 40 mg twice daily, magnesium oxide 500 mg daily, Toprol- XL 100 mg daily. 2/3 Yesterday, patient underwent cardiac catheterization with Dr. Murrieta that revealed CAD including 100% mid LAD in-stent stenosis, 30% circumflex stenosis, 30 to 40% RCA stenosis status post PCI of the mid LAD. Echocardiogram reveals mild to distal inferior and inferior septal wall hypokinesia. Apical hypokinesis. Left ventricle EF 50 to 55%. No significant valvular dysfunction. No pericardial effusion. Blood pressure has been on the lower side currently at 109/68, heart rate is running in the 70s and 80s, pulse ox 94% on 2 L nasal cannula. Creatinine 1.05. Patient complains of feeling tired today. Results of echocardiogram have been reviewed with patient and family. Physical examination: Gen: This is a 73-year-old female appears to be in no acute distress VS: reviewed HEENT: Head is atraumatic, normocephalic. Pupils equal, round. Sclerae is anicteric. NECK: Supple. No JVD. LUNGS: Clear to auscultation. No wheezes or rhonchi. No intercostal retractions. HEART: Regular rate and rhythm. No murmur. ABDOMEN: Soft No tenderness. EXTREMITIES: Minimal chronic pedal edema. No calf tenderness. NEUROLOGICAL: Patient is awake, alert and oriented x3. Assessment: Non-ST elevated myocardial infarction Diabetes mellitus type 2 Hypertension Hyperlipidemia History of lung cancer History of vaping Plan: Patient is currently maintained on aspirin 81 mg daily, atorvastatin increase to 40 mg at bedtime, Lasix 40 mg twice daily, Toprol XL 100 mg daily and Plavix 75 mg daily. Patient is cleared for discharge from cardiology and may follow-up with Dr. Murrieta in 1 to 2 weeks. Nurse practitioner note has been reviewed, I agree with documented findings and plan of care. Patient was seen and examined. Objective - Vital Signs Vital signs: Vital Signs Temp 98.6 F 04/13/23 08:15 Pulse 84 04/13/23 08:18 Resp 18 04/13/23 08:15 BP 109/68 04/13/23 08:15 Pulse Ox 94 L 04/13/23 08:15 FiO2 Intake & Output 04/12/23 04/13/23 04/13/23 18:59 06:59 18:59 Intake Total 200 240 Balance 200 240 Intake: IV 200 Oral 240 Other: Voiding Method Toilet # Voids 2 - Labs CBC & Chem 7: 04/12/23 05:28 04/13/23 07:32 Labs: Abnormal Lab Results - Last 24 Hours (Table) 04/12/23 04/12/23 04/13/23 Range/Units 01:07 20:04 05:57 POC Glucose (mg/dL) 202 H 187 H (70-110) mg/dL Triglycerides 298.00 H (0.00-149.00) mg/dL VLDL Cholesterol, Calc 59.60 H (5.00-40.00) mg/dL HDL Cholesterol 36.70 L (40.00-60.00) mg/dL
[2023-04-13 11:32] LABS: Glucose,Whole Blood 481 mg/dL (70-110)
[2023-04-13 11:59] VITALS: BMI 29.5
[2023-04-13] MEDS ORDERED: INSULIN ASPART (NovoLOG) 100 UNIT/ML VIAL SQ ONE (12:27)
[2023-04-13] MEDS: CLOPIDOGREL 75 MG TAB PO SCH (12:54)
[2023-04-13] MEDS ORDERED: SODIUM CHLORIDE 0.9% 250 ML IV ONE (13:22)
[2023-04-13 14:09] LABS: Glucose,Whole Blood 414 mg/dL (70-110)
[2023-04-13 16:37] LABS: Glucose,Whole Blood 252 mg/dL (70-110)
[2023-04-13] MEDS ORDERED: DEXTROSE 50% SYRINGE 50 ML IVP PRN ×2 (17:05)
--- NOTE | 2023-04-13 17:25 | P.HPIM ---
History of Present Illness H&P Date: 04/12/23 Chief Complaint: Chest pain 73-year-old female patient with past medical history of diabetes mellitus type 2, hypertension, hyperlipidemia, lung cancer, vaping. We have been asked to evaluate the patient for non-ST elevated myocardial infarction. 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 She presented to the emergency center due to chest pain has been going on for couple weeks and including under the armpit area. Patient states the pain was getting worse, on and off over this time. Patient has been started on a heparin drip and is seen today in the emergency center waiting for bed on the cardiac stepdown unit. Patient denies having any history of smoking, no alcohol use. No family history of coronary artery disease. EKG sinus rhythm CBC is unremarkable. INR 1. Electrolytes normal. BUN 22 creatinine 0.96. Blood sugar 270. AST 61 otherwise liver function test are normal. Magnesium 2.2, phosphorus 4.1. Troponins 1.88, 2.05, 2.75. Triglycerides 298, cholesterol 146, LDL 49, HDL 36. Review of Systems REVIEW OF SYSTEMS: CONSTITUTIONAL: No fever, no malaise, no fatigue. HEENT: No recent visual problems or hearing problems. Denied any sore throat. CARDIOVASCULAR: No chest pain, orthopnea, PND, no palpitations, no syncope. PULMONARY: No shortness of breath, no cough, no hemoptysis. GASTROINTESTINAL: No diarrhea, no nausea, no vomiting, no abdominal pain. NEUROLOGICAL: No headaches, no weakness, no numbness. HEMATOLOGICAL: Denies any bleeding or petechiae. GENITOURINARY: Denies any burning micturition, frequency, or urgency. MUSCULOSKELETAL/RHEUMATOLOGICAL: Denies any joint pain, swelling, or any muscle pain. ENDOCRINE: Denies any polyuria or polydipsia. The rest of the 14-point review of systems is negative. Past Medical History Past Medical History: Cancer, Diabetes Mellitus Additional Past Medical History / Comment(s): Lung CA, Skin CA History of Any Multi-Drug Resistant Organisms: None Reported Past Surgical History: Heart Catheterization With Stent Additional Past Surgical History / Comment(s): Lung CA removal Past Psychological History: No Psychological Hx Reported Smoking Status: Vaper Past Alcohol Use History: None Reported Past Drug Use History: None Reported Medications and Allergies Home Medications Medication Instructions Recorded Confirmed Type ALPRAZolam [Xanax] 1 mg PO BID 04/11/23 04/11/23 History Albuterol Inhaler [Ventolin Hfa 2 puff INHALATION RT-Q4H PRN 04/11/23 04/11/23 History Inhaler] Budesonide 0.5 mg INHALATION RT-BID 04/11/23 04/11/23 History Cholecalciferol (Vitamin D3) 50 mcg PO DAILY 04/11/23 04/11/23 History [Vitamin D3 (50 Mcg = 2000 Iu)] Cyanocobalamin [Vitamin B-12] 500 mcg PO DAILY 04/11/23 04/11/23 History Furosemide [Lasix] 40 mg PO BID 04/11/23 04/11/23 History Gabapentin 600 mg PO BID 04/11/23 04/11/23 History Glimepiride [Amaryl] 2 mg PO BID 04/11/23 04/11/23 History HYDROcodone/APAP 7.5-325MG [[place] 1 tab PO TID PRN 04/11/23 04/11/23 History 7.5-325] Ipratropium-Albuterol Nebulize 3 ml INHALATION RT-QID PRN 04/11/23 04/11/23 History [Duoneb 0.5 mg-3 mg/3 ml Soln] Magnesium Oxide [Magnesium] 500 mg PO DAILY 04/11/23 04/11/23 History Metoprolol Succinate (ER) [Toprol 100 mg PO DAILY 04/11/23 04/11/23 History XL] allopurinoL [Zyloprim] 100 mg PO HS 04/11/23 04/11/23 History calcitrioL [Rocaltrol] 0.25 mcg PO TUTH 04/11/23 04/11/23 History tiZANidine [Zanaflex] 4 mg PO TID 04/11/23 04/11/23 History Aspirin 81 mg PO DAILY tab 04/13/23 Rx Atorvastatin [Lipitor] 40 mg PO HS #90 tablet 04/13/23 Rx Clopidogrel [Plavix] 75 mg PO DAILY #90 tab 04/13/23 Rx Nitroglycerin Sl Tabs [Nitrostat] 0.4 mg SUBLINGUAL Q5M PRN #25 tab 04/13/23 Rx Allergies Allergy/AdvReac Type Severity Reaction Status Date / Time morphine AdvReac Rash/Hives Verified 04/11/23 22:20 rifaximin [From Xifaxan] AdvReac Rash/Hives Verified 04/11/23 22:20 Sulfa (Sulfonamide AdvReac Rash/Hives Verified 04/11/23 22:20 Antibiotics) tetracycline AdvReac Rash/Hives Verified 04/11/23 22:20 Physical Exam Vitals: Vital Signs Temp Pulse Pulse Resp BP Pulse Ox 04/12/23 08:20 65 16 95 04/12/23 08:00 55 L 18 103/63 96 04/12/23 06:00 61 16 100/58 98 04/12/23 04:00 58 L 16 80/59 97 04/12/23 02:00 65 18 103/68 95 04/11/23 23:54 64 18 118/67 93 L 04/11/23 22:30 63 18 127/69 96 04/11/23 21:30 67 18 136/78 93 L 04/11/23 21:26 69 04/11/23 21:15 97.1 F L 78 18 156/86 92 L Intake and Output 04/11/23 04/12/23 04/12/23 22:59 06:59 14:59 Other: Weight 75.75 kg Gen: This is a 73-year-old female appears to be in no acute distress VS: reviewed HEENT: Head is atraumatic, normocephalic. Pupils equal, round. Sclerae is anicte melisa. NECK: Supple. No JVD. LUNGS: Clear to auscultation. No wheezes or rhonchi. No intercostal re tractions. HEART: Regular rate and rhythm. No murmur. ABDOMEN: Soft No tenderness. EXTREMITIES: No pedal edema. No calf tenderness. NEUROLOGICAL: Patient is awake, alert and oriented x3. Results CBC & Chem 7: 04/12/23 05:28 04/13/23 07:32 Labs: Abnormal Lab Results - Last 24 Hours (Table) 04/11/23 04/11/23 04/11/23 Range/Units 21:22 21:24 21:24 WBC 10.9 H (3.8-10.6) k/uL APTT 62.7 H (22.0-30.0) sec BUN 22 H (7-17) mg/dL Glucose 270 H (74-99) mg/dL AST 61 H (14-36) U/L Troponin I (0.000-0.034) ng/mL Triglycerides (0.00-149.00) mg/dL VLDL Cholesterol, Calc (5.00-40.00) mg/dL HDL Cholesterol (40.00-60.00) mg/dL 04/11/23 04/11/23 04/11/23 Range/Units 21:24 22:46 22:46 WBC (3.8-10.6) k/uL APTT 35.0 H (22.0-30.0) sec BUN (7-17) mg/dL Glucose (74-99) mg/dL AST (14-36) U/L Troponin I 1.880 H* 2.050 H* (0.000-0.034) ng/mL Triglycerides (0.00-149.00) mg/dL VLDL Cholesterol, Calc (5.00-40.00) mg/dL HDL Cholesterol (40.00-60.00) mg/dL 04/12/23 04/12/23 04/12/23 Range/Units 01:07 01:07 05:28 WBC (3.8-10.6) k/uL APTT 54.9 H (22.0-30.0) sec BUN (7-17) mg/dL Glucose (74-99) mg/dL AST (14-36) U/L Troponin I 2.750 H* (0.000-0.034) ng/mL Triglycerides 298.00 H (0.00-149.00) mg/dL VLDL Cholesterol, Calc 59.60 H (5.00-40.00) mg/dL HDL Cholesterol 36.70 L (40.00-60.00) mg/dL Assessment and Plan Assessment: 1. Non-ST elevation [place] --Initial troponin at type of admission was elevated at 2.050 with next troponin escalating up to 2.750 -Patient is evaluated by cardiology and is placed on IV heparin infusion; 2D echo is ordered and pending -- Plan is cardiac catheterization tomorrow morning 2. Mild SARAH; encourage increased fluid intake; monitor BUN and creatin ine/electrolytes; monitor strict RENNY's and daily weights; avoid nephrotoxins and hypotension 3. Hyperglycemia without acidosis; patient takes Amaryl 2 mg twice daily; will continue with home medications and monitor Accu-Cheks before every meal and at bedtime with insulin sliding scale 4. Hypertension; metoprolol XL 100 mg daily; Lasix 40 mg twice daily 5. Hyperlipidemia; Lipitor 20 mg p.o. nightly 6. Asthma/COPD; not in exacerbation; continue with home inhaler therapy 7. Neuropathy; Neurontin 600 mg twice daily 8. Hyperuricemia; continue home dose of allopurinol 100 mg daily DVT prophylaxis; SCDs/IV heparin CODE STATUS; full code
--- NOTE | 2023-04-13 17:27 | P.PN ---
Subjective Progress Note Date: 04/13/23 73-year-old female patient with past medical history of diabetes mellitus type 2, hypertension, hyperlipidemia, lung cancer, vaping. We have been asked to evaluate the patient for non-ST elevated myocardial infarction. 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 She presented to the emergency center due to chest pain has been going on for couple weeks and including under the armpit area. Patient states the pain was getting worse, on and off over this time. Patient has been started on a heparin drip and is seen today in the emergency center waiting for bed on the cardiac stepdown unit. Patient denies having any history of smoking, no alcohol use. No family history of coronary artery disease. EKG sinus rhythm CBC is unremarkable. INR 1. Electrolytes normal. BUN 22 creatinine 0.96. Blood sugar 270. AST 61 otherwise liver function test are normal. Magnesium 2.2, phosphorus 4.1. Troponins 1.88, 2.05, 2.75. Triglycerides 298, cholesterol 146, LDL 49, HDL 36. --- Patient is status postcardiac catheterization with PCI to LAD; echocardiogram reveals EF of 50 to 55%; patient is recommended DAPT with Plavix and aspirin for 12 months -- Patient was cleared for discharge by cardiology but blood pressure remained soft with markedly elevated blood sugars; we will monitor Accu-Cheks before every meal and at bedtime with insulin sliding scale and monitor elevated blood pressure Objective - Vital Signs Vital signs: Vital Signs Temp 98.6 F 04/13/23 08:15 Pulse 84 04/13/23 08:18 Resp 18 04/13/23 08:15 BP 109/68 04/13/23 08:15 Pulse Ox 94 L 04/13/23 08:15 FiO2 Intake & Output 04/12/23 04/13/23 04/13/23 18:59 06:59 18:59 Intake Total 200 240 346 Balance 200 240 346 Intake: IV 200 Oral 240 346 Other: Voiding Method Toilet # Voids 2 - Exam Gen: This is a 73-year-old female appears to be in no acute distress VS: reviewed HEENT: Head is atraumatic, normocephalic. Pupils equal, round. Sclerae is anicteric. NECK: Supple. No JVD. LUNGS: Clear to auscultation. No wheezes or rhonchi. No intercostal retractions. HEART: Regular rate and rhythm. No murmur. ABDOMEN: Soft No tenderness. EXTREMITIES: No pedal edema. No calf tenderness. NEUROLOGICAL: Patient is awake, alert and oriented x3. - Labs CBC & Chem 7: 04/12/23 05:28 04/13/23 07:32 Labs: Abnormal Lab Results - Last 24 Hours (Table) 04/12/23 04/13/23 04/13/23 Range/Units 20:04 05:57 07:32 Creatinine 1.05 H (0.52-1.04) mg/dL POC Glucose (mg/dL) 202 H 187 H (70-110) mg/dL Assessment and Plan Assessment: 1. Non-ST elevation AR --Initial troponin at type of admission was elevated at 2.050 with next troponin escalating up to 2.750 -Patient is evaluated by cardiology and is placed on IV heparin infusion; 2D echo is ordered and pending -- Plan is cardiac catheterization tomorrow morning 2. Mild SARAH; encourage increased fluid intake; monitor BUN and creatinine/electrolytes; monitor strict RENNY's and daily weights; avoid nephrotoxins and hypotension 3. Hyperglycemia without acidosis; patient takes Amaryl 2 mg twice daily; will continue with home medications and monitor Accu-Cheks before every meal and at bedtime with insulin sliding scale 4. Hypertension; metoprolol XL 100 mg daily; Lasix 40 mg twice daily 5. Hyperlipidemia; Lipitor 20 mg p.o. nightly 6. Asthma/COPD; not in exacerbation; continue with home inhaler therapy 7. Neuropathy; Neurontin 600 mg twice daily 8. Hyperuricemia; continue home dose of allopurinol 100 mg daily DVT prophylaxis; SCDs/IV heparin CODE STATUS; full code
[2023-04-13] MEDS: INSULIN ASPART (NovoLOG) 100 UNIT/ML VIAL SQ SCH ×2 (17:28→20:51)
[2023-04-13 19:57] LABS: Glucose,Whole Blood 218 mg/dL (70-110)
[2023-04-13] MEDS: allopurinoL 100 MG TAB PO SCH (20:50)
[2023-04-13] MEDS: ALPRAZolam 0.5 MG TAB PO PRN (20:50)
[2023-04-13] MEDS: ATORVASTATIN 20 MG TAB PO SCH (20:51)
[2023-04-14 06:12] LABS: Glucose,Whole Blood 176 mg/dL (70-110)
[2023-04-14] MEDS: INSULIN ASPART (NovoLOG) 100 UNIT/ML VIAL SQ SCH ×2 (06:50→12:39)
[2023-04-14] MEDS: MAGNESIUM OXIDE 400 MG TAB PO SCH (08:31)
[2023-04-14] MEDS: GLIMEPIRIDE 1 MG TAB PO SCH (08:31)
[2023-04-14] MEDS: ASPIRIN 81 MG PO SCH (08:32)
[2023-04-14] MEDS: CHOLECALCIFEROL 25 MCG (1000 IU) TABLET PO SCH (08:32)
[2023-04-14] MEDS: CLOPIDOGREL 75 MG TAB PO SCH (08:32)
[2023-04-14] MEDS: CYANOCOBALAMIN 500 MCG TAB PO SCH (08:32)
[2023-04-14] MEDS: GABAPENTIN 300 MG CAP PO SCH (08:32)
[2023-04-14 08:49] VITALS: RESP 16
[2023-04-14] MEDS: BUDESONIDE 0.5 MG/2 ML NEBU INHALATION SCH (08:55)
[2023-04-14] MEDS: IPRATROPIUM-ALBUTEROL 3 ML NEB INHALATION PRN (08:55)
[2023-04-14] MEDS: tiZANidine 4 MG TAB PO SCH (10:30)
[2023-04-14 10:58] LABS: Basophils % (A) 0 %; Eosinophils # (A) 0.1 k/uL (0-0.7); Eosinophils % (A) 1 %; HCT 38.6 % (34.0-46.0); HGB 12.8 gm/dL (11.4-16.0); Lymphocytes # (A) 1.7 k/uL (1.0-4.8); Lymphocytes % (A) 21 %; MCH 30.1 pg (25.0-35.0); MCHC 33.1 g/dL (31.0-37.0); MCV 90.9 fL (80.0-100.0); Mean Platelet Volume 8.1; Monocytes # (A) 0.4 k/uL (0-1.0); Monocytes % (A) 5 %; Neutrophils # (A) 5.7 k/uL (1.3-7.7); Neutrophils % (A) 71 %; Platelet Count 182 k/uL (150-450); RBC 4.24 m/uL (3.80-5.40); RDW 13.7 % (11.5-15.5)
--- NOTE | 2023-04-14 10:58 | P.PN ---
Subjective Progress Note Date: 04/14/23 Reason for Consult (text): NSTEMI History of present illness: History of present illness: This is a 73-year-old female patient with past medical history of diabetes mellitus type 2, hypertension, hyperlipidemia, lung cancer, vaping. We have been asked to evaluate the patient for non-ST elevated myocardial infarction. 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 She presented to the emergency center due to chest pain has been going on for couple weeks and including under the armpit area. Patient states the pain was getting worse, on and off over this time. Patient has been started on a heparin drip and is seen today in the emergency center waiting for bed on the cardiac stepdown unit. Patient denies having any history of smoking, no alcohol use. No family history of coronary artery disease. EKG sinus rhythm CBC is unremarkable. INR 1. Electrolytes normal. BUN 22 creatinine 0.96. Blood sugar 270. AST 61 otherwise liver function test are normal. Magnesium 2.2, phosphorus 4.1. Troponins 1.88, 2.05, 2.75. Triglycerides 298, cholesterol 146, LDL 49, HDL 36. Home cardiac medications: Atorvastatin 20 mg at bedtime, Plavix 75 mg Saturday, Lasix 40 mg twice daily, magnesium oxide 500 mg daily, Toprol- XL 100 mg daily. 2 Yesterday, patient underwent cardiac catheterization with Dr. Murrieta that revealed CAD including 100% mid LAD in-stent stenosis, 30% circumflex stenosis, 30 to 40% RCA stenosis status post PCI of the mid LAD. Echocardiogram reveals mild to distal inferior and inferior septal wall hypokinesia. Apical hypokinesis. Left ventricle EF 50 to 55%. No significant valvular dysfunction. No pericardial effusion. Blood pressure has been on the lower side currently at 109/68, heart rate is running in the 70s and 80s, pulse ox 94% on 2 L nasal cannula. Creatinine 1.05. Patient complains of feeling tired today. Results of echocardiogram have been reviewed with patient and family. 04/14 Patient was cleared for discharge yesterday from us but because blood pressures were soft and she also had elevated blood sugars, discharge was held for another day. This morning, blood pressure is 127/78. Heart rate is in 70s. Telemetry sinus rhythm. Patient has ambulated in her room without lightheadedness or dizziness. Usually her BP 120 per patient. she was low yesterday to 85 systolic. Toprol and lasix were held. Physical examination: Gen: This is a 73-year-old female appears to be in no acute distress VS: reviewed HEENT: Head is atraumatic, normocephalic. Pupils equal, round. Sclerae is anicteric. LUNGS: Clear to auscultation. No wheezes or rhonchi. No intercostal retractions. HEART: Regular rate and rhythm. No murmur. ABDOMEN: Soft No tenderness. EXTREMITIES: Minimal chronic pedal edema. No calf tenderness. NEUROLOGICAL: Patient is awake, alert and oriented x3. Assessment: Non-ST elevated myocardial infarction Diabetes mellitus type 2 Hypertension Hyperlipidemia History of lung cancer History of vaping Plan: Patient is currently maintained on aspirin 81 mg daily, atorvastatin 40 mg at bedtime, Lasix 40 mg twice daily, decrease Toprol XL to 50 mg daily and Plavix 75 mg daily. Ambulate patient in the hallway and monitor for symptoms If patient does well with ambulation, she is cleared for discharge from sc rdiology and may follow-up with Dr. Murrieta in 1 week. Nurse practitioner note has been reviewed, I agree with documented findings and plan of care. Patient was seen and examined. Objective - Vital Signs Vital signs: Vital Signs Temp 98.2 F 04/14/23 08:30 Pulse 79 04/14/23 08:30 Resp 16 04/14/23 08:30 BP 127/78 04/14/23 08:30 Pulse Ox 95 04/14/23 08:30 FiO2 Intake & Output 04/13/23 04/14/23 04/14/23 18:59 06:59 18:59 Intake Total 1172 180 Balance 1172 180 Weight 75.75 kg Intake: Intake, IV Titration 350 Amount Sodium Chloride 0.9% 1, 100 000 ml @ 75 mls/hr IV . [id number] Rx#:[id number] Sodium Chloride 0.9% 250 250 ml @ 999 mls/hr IV .Q16M [facility] Rx#:[id number] Oral 822 180 Other: Voiding Method Toilet Toilet # Voids 2 1 - Labs CBC & Chem 7: 04/12/23 05:28 02/03/24 07:32 Labs: Abnormal Lab Results - Last 24 Hours (Table) 04/13/23 04/13/23 04/13/23 Range/Units 07:32 11:30 14:07 Creatinine 1.05 H (0.52-1.04) mg/dL POC Glucose (mg/dL) 481 H 414 H (70-110) mg/dL 04/13/23 04/13/23 04/14/23 Range/Units 16:35 19:54 06:10 Creatinine (0.52-1.04) mg/dL POC Glucose (mg/dL) 252 H 218 H 176 H (70-110) mg/dL
[2023-04-14] MEDS ORDERED: DAPAGLIFLOZIN PROPANEDIOL 10 MG TABLET PO SCH (11:00)
[2023-04-14 11:15] LABS: African American GFR (CKD) 65 (>60 ml/min/1.73 sqM); Anion Gap 10 mmol/L; Blood Urea Nitrogen 17 mg/dL (7-17); Calcium 8.5 mg/dL (8.4-10.2); Carbon Dioxide 28 mmol/L (22-30); Chloride 101 mmol/L (98-107); Glucose 205 mg/dL (74-99); Non-African American GFR(CKD) 56 (>60 ml/min/1.73 sqM); Potassium 3.7 mmol/L (3.5-5.1); Sodium 139 mmol/L (137-145)
[2023-04-14] MEDS ORDERED: METOPROLOL SUCCINATE (ER) 50 MG TAB.ER.24H PO SCH (11:24)
[2023-04-14] MEDS: FUROSEMIDE 40 MG TAB PO SCH (11:36)
[2023-04-14 11:48] LABS: Glucose,Whole Blood 200 mg/dL (70-110)
[2023-04-14] MEDS: METOPROLOL SUCCINATE (ER) 100 MG TAB.ER.24H PO SCH (11:50)
[2023-04-14 12:00] VITALS: BP 155/79; PULSE 82; TEMP 99.5
[2023-04-15] MEDS ORDERED: METOPROLOL SUCCINATE (ER) 50 MG TAB.ER.24H PO SCH (09:00)
== END 2023-04-14 15:15 | disposition home or self-care (01) | DRG 323 ==
LOC: EC 21:08 → 3SCARD 21:35
PROVIDERS: ADMIT Hospitalist; ATTEND Hospitalist
PROC: 027034Z Dilation of Coronary Artery, One Artery with Drug-eluting Intraluminal Device, Percutaneous Approach (ICD-10-PCS; principal; 2023-04-12 13:00)
PROC: 02F03ZZ Fragmentation in Coronary Artery, One Artery, Percutaneous Approach (ICD-10-PCS; 2023-04-12 13:00)
PROC: 4A023N7 Measurement of Cardiac Sampling and Pressure, Left Heart, Percutaneous Approach (ICD-10-PCS; 2023-04-12 13:00)
PROC: B2111ZZ Fluoroscopy of Multiple Coronary Arteries using Low Osmolar Contrast (ICD-10-PCS; 2023-04-12 13:00)
DX: T82.855A Stenosis of coronary artery stent, initial encounter (principal); I21.4 Non-ST elevation (NSTEMI) myocardial infarction; N17.9 Acute kidney failure, unspecified; Z98.61 Coronary angioplasty status; J44.89 Other specified chronic obstructive pulmonary disease; G62.9 Polyneuropathy, unspecified; E79.0 Hyperuricemia without signs of inflammatory arthritis and tophaceous disease; E11.42 Type 2 diabetes mellitus with diabetic polyneuropathy; I25.10 Atherosclerotic heart disease of native coronary artery without angina pectoris; I10 Essential (primary) hypertension; E78.5 Hyperlipidemia, unspecified; F17.290 Nicotine dependence, other tobacco product, uncomplicated; E11.65 Type 2 diabetes mellitus with hyperglycemia; Y83.1 Surgical operation with implant of artificial internal device as the cause of abnormal reaction of the patient, or of later complication, without mention of misadventure at the time of the procedure; Z79.02 Long term (current) use of antithrombotics/antiplatelets; Z79.82 Long term (current) use of aspirin; Z79.84 Long term (current) use of oral hypoglycemic drugs; Z79.899 Other long term (current) drug therapy; Z85.118 Personal history of other malignant neoplasm of bronchus and lung; Z88.2 Allergy status to sulfonamides; Z88.5 Allergy status to narcotic agent; Z88.1 Allergy status to other antibiotic agents; Z85.828 Personal history of other malignant neoplasm of skin
CPT/HCPCS: 36415; 76937; 80048; 80053; 80061; 82565; 83036; 83605; 83735; 83880; 84100; 84484; 85025; 85610; 85730; 92978; 93005; 93306; 93458; 94640; 94760